=== PATIENT | female | born 1960 | race Caucasian/White ===

== ENCOUNTER 2018-12-13 07:58 | Inpatient (IN) | payer MEDICARE, MEDICAID ==
[~2018-12-13] VITALS: Ht 162.6 cm; Wt 53.5 kg
--- NOTE | 2018-12-13 08:07 | NUR ---
BIB [facility] FOR C/O CP STARTED AT 0300 THIS AM W/ COUGHING AND FEVER. NO HX CARDIAC/PULM ISSUES. 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 USES METH. PT RESTING ON GURNEY. MONITORS APPLIED. WARM BLANKET PROVIDED.
[2018-12-13] MEDS ORDERED: SODIUM CHLORIDE FLUSH 10ML SYR IVF ONE (08:30)
[2018-12-13] MEDS ORDERED: SODIUM CHLORIDE 0.9% 1,000ML IVBOLUS ONE (08:30)
[2018-12-13 08:56] LABS: MEAN CORPUSCULAR HEMOGLOBIN 28.2 pg (27.0-34.8); MEAN CORPUSCULAR HGB CONC 33.3 g/dL (32.4-35.8); MEAN CORPUSCULAR VOLUME 84.8 fL (80-100); MEAN PLATELET VOLUME 7.4 fL (7.4-10.4); PLATELET COUNT 318 x10^3/uL (130-400); RED BLOOD COUNT 4.98 x10^6/uL (3.82-5.3); RED CELL DISTRIBUTION WIDTH 14.6 % (9.6-15.2)
[2018-12-13] MEDS ORDERED: AZITHROMYCIN 500 MG in SODIUM CHLORIDE 0.9% 250 ML IV ONE (09:00)
[2018-12-13] MEDS ORDERED: CEFTRIAXONE PMX 1GM/50ML 50 ML IVPB ONE (09:00)
[2018-12-13 09:01] LABS: ALANINE AMINOTRANSFERASE 33 U/L (12-78); ALBUMIN 3.4 g/dL (3.4-5.0); ANION GAP 6 mmol/L (5-15); CALCIUM 8.5 mg/dL (8.5-10.1); CHLORIDE 106 mmol/L (98-107); CREATININE 0.85 mg/dL (0.55-1.02)
[2018-12-13] MEDS ORDERED: CEFTRIAXONE PMX 1GM/50ML 50 ML ONE (09:01)
[2018-12-13 09:06] LABS: ALKALINE PHOSPHATASE 110 U/L (45-117); BILIRUBIN,TOTAL 0.3 mg/dL (0.2-1.0); TOTAL PROTEIN 7.3 g/dL (6.4-8.2); TROPONIN I < 0.015 ng/mL (0.000-0.045)
--- NOTE | 2018-12-13 09:14 | NUR ---
PT RESTING ON [id number]. NADN. VSS. MEDICATED PER OCT.
[2018-12-13 09:32] LABS: BASOPHILS # (AUTO) 0.08 x10^3/uL (0-0.1); BASOPHILS % (AUTO) 1 % (0-1); EOSINOPHILS # (AUTO) 0.02 x10^3/uL (0-0.4); EOSINOPHILS % (AUTO) 0 % (1-7); LYMPHOCYTES # (AUTO) 1.13 x10^3/uL (1-3.4); LYMPHOCYTES % (AUTO) 7 % (22-44); MD SCAN; MONOCYTES # (AUTO) 0.37 x10^3/uL (0.2-0.8); MONOCYTES % (AUTO) 2 % (2-9); NEUTROPHILS # (AUTO) 14.48 x10^3/uL (1.8-6.8); NEUTROPHILS % (AUTO) 90 % (42-75)
[2018-12-13 09:35] LABS: MICROSCOPIC AUTO
[2018-12-13 09:37] LABS: CULTURE INDICATED? YES
--- NOTE | 2018-12-13 09:43 | NUR ---
PT CHART REVIEWED AND PLACED FOR RECHECK
--- NOTE | 2018-12-13 10:29 | NUR ---
PT SLEEPING ON SHANELLE. NADN. MANRIQUE.
[2018-12-13] MEDS ORDERED: IBUPROFEN 600 MG TABLET ONE (10:35)
[2018-12-13] MEDS ORDERED: IBUPROFEN 600 MG TABLET PO ONE (11:00)
--- NOTE | 2018-12-13 11:14 | NUR ---
PT RESTING ON SHANELLE. VSS. AWARE OF POC FOR ADMIT.
--- NOTE | 2018-12-13 11:57 | NUR ---
PT SLEEPING ON SHANELLE. NADN. MANRIQUE.
--- NOTE | 2018-12-13 12:16 | NUR ---
REPORT GIVEN TO LAURE, MIKE RN. ALL QUESTIONS ANSWERED. AWAITING PT TRANSPORT.
[2018-12-13 12:32] VITALS: BP 112/70
[2018-12-13 15:16] VITALS: BP 112/70
[2018-12-13] MEDS ORDERED: CEFTRIAXONE PMX 1GM/50ML 50 ML IV SCH ×2 (17:30→21:00)
[2018-12-13] MEDS ORDERED: GUAIFENESIN/DM 200-20MG, 10ML UDC PO PRN (17:30)
[2018-12-13] MEDS: NICOTINE 21 MG/24 HR PATCH.TD24 TD SCH (17:30)
[2018-12-13] MEDS ORDERED: ONDANSETRON ODT 4 MG PO PRN (17:30)
[2018-12-13] MEDS ORDERED: ONDANSETRON 2MG/ML, 2ML IVPush PRN (17:30)
[2018-12-13] MEDS ORDERED: hydrALAzine 20 MG/ML, 1ML IVPush PRN (17:30)
[2018-12-13] MEDS ORDERED: POLYETHYLENE GLYCOL 17 GM PACKET PO PRN (17:30)
[2018-12-13] MEDS ORDERED: ZOLPIDEM 5MG TABLET PO PRN (17:30)
[2018-12-13] MEDS ORDERED: AZITHROMYCIN 500 MG in SODIUM CHLORIDE 0.9% 250 ML IV SCH (17:30)
[2018-12-13] MEDS ORDERED: LABETALOL 20 MG/4 ML IVPush PRN (17:30)
[2018-12-13] MEDS ORDERED: LIDODERM 5% PATCH TD PRN (17:30)
[2018-12-13] MEDS ORDERED: GUAIFENESIN/COD200MG-20MG/10ML LIQUID PO PRN (17:30)
[2018-12-13] MEDS: SODIUM CHLORIDE 0.9% 1,000 ML IV SCH (18:26)
[2018-12-13 18:45] VITALS: BP 147/75
[2018-12-13 18:45] LABS: TROPONIN I < 0.015 ng/mL (0.000-0.045)
[2018-12-13] MEDS: FAMOTIDINE 20 MG TABLET PO SCH (20:25)
[2018-12-13] MEDS: ENOXAPARIN 40 MG/0.4 ML SQ SCH (20:25)
[2018-12-14 00:21] LABS: TROPONIN I < 0.015 ng/mL (0.000-0.045)
[2018-12-14 02:40] VITALS: BP 127/72
[2018-12-14] MEDS: SODIUM CHLORIDE 0.9% 1,000 ML IV SCH ×2 (05:23→17:53)
[2018-12-14 05:48] LABS: MEAN CORPUSCULAR HEMOGLOBIN 28.7 pg (27.0-34.8); MEAN CORPUSCULAR HGB CONC 33.6 g/dL (32.4-35.8); MEAN CORPUSCULAR VOLUME 85.6 fL (80-100); MEAN PLATELET VOLUME 7.5 fL (7.4-10.4); PLATELET COUNT 302 x10^3/uL (130-400); RED BLOOD COUNT 4.37 x10^6/uL (3.82-5.3); RED CELL DISTRIBUTION WIDTH 14.5 % (9.6-15.2)
[2018-12-14 05:55] LABS: CHLORIDE 116 mmol/L (98-107)
[2018-12-14 06:13] LABS: ANION GAP 7 mmol/L (5-15); CALCIUM 8.3 mg/dL (8.5-10.1); CHOL/HDL RATIO 2.5; CHOLESTEROL, TOTAL 139 mg/dL (140-239); CREATININE 0.67 mg/dL (0.55-1.02); HDL CHOL % 40 % (28-40); HDL CHOLESTEROL (DIRECT) 56 mg/dL (40-60); LDL CHOLESTEROL,CALCULATED 70 mg/dL (54-169); LDL/HDL RATIO 1.3 (0.5-3.0); TRIGLYCERIDES 64 mg/dL (50-200); VLDL CHOLESTEROL 13 mg/dL (0-25)
[2018-12-14 06:20] LABS: BASOPHILS # (AUTO) 0.05 x10^3/uL (0-0.1); BASOPHILS % (AUTO) 0 % (0-1); EOSINOPHILS # (AUTO) 0.11 x10^3/uL (0-0.4); EOSINOPHILS % (AUTO) 1 % (1-7); LYMPHOCYTES % (AUTO) 16 % (22-44); MD SCAN; MONOCYTES # (AUTO) 1.22 x10^3/uL (0.2-0.8); MONOCYTES % (AUTO) 6 % (2-9); NEUTROPHILS # (AUTO) 15.38 x10^3/uL (1.8-6.8); NEUTROPHILS % (AUTO) 77 % (42-75)
[2018-12-14] MEDS ORDERED: VANCOMYCIN PER PHARMACY MC PRN (07:00)
[2018-12-14 07:30] VITALS: BP 134/78
[2018-12-14] MEDS ORDERED: PHARMACOKINETIC MONITORING MC PRN (07:30)
[2018-12-14] MEDS: PIPERACILLIN/TAZO/PMX 4.5GM 100 ML IV SCH ×3 (07:46→18:41)
[2018-12-14] MEDS: FAMOTIDINE 20 MG TABLET PO SCH ×2 (08:37→23:09)
[2018-12-14] MEDS: VANCOMYCIN PMX 1GM/200ML 200 ML IV SCH ×2 (08:37→20:13)
[2018-12-14] MEDS: GUAIFENESIN 200 MG TABLET PO SCH ×4 (08:37→23:10)
[2018-12-14] MEDS: ACETAMINOPHEN 325 MG TABLET PO PRN (08:42)
[2018-12-14] MEDS: AZITHROMYCIN 500 MG in SODIUM CHLORIDE 0.9% 250 ML IV SCH (11:39)
[2018-12-14 12:27] LABS: RAPID INFLUENZA A Negative (Negative); RAPID INFLUENZA B Negative (Negative)
[2018-12-14 14:45] VITALS: BP 154/90
[2018-12-14] MEDS: NICOTINE 21 MG/24 HR PATCH.TD24 TD SCH (16:26)
[2018-12-14 20:26] VITALS: BP 158/80
[2018-12-14] MEDS: ENOXAPARIN 40 MG/0.4 ML SQ SCH (23:10)
[2018-12-15 00:05] VITALS: BP 144/80
[2018-12-15] MEDS: PIPERACILLIN/TAZO/PMX 4.5GM 100 ML IV SCH ×2 (02:17→09:33)
[2018-12-15] MEDS: SODIUM CHLORIDE 0.9% 1,000 ML IV SCH (05:32)
[2018-12-15 05:50] LABS: BASOPHILS # (AUTO) 0.03 x10^3/uL (0-0.1); BASOPHILS % (AUTO) 0 % (0-1); EOSINOPHILS # (AUTO) 0.24 x10^3/uL (0-0.4); EOSINOPHILS % (AUTO) 2 % (1-7); LYMPHOCYTES # (AUTO) 3.63 x10^3/uL (1-3.4); LYMPHOCYTES % (AUTO) 30 % (22-44); MD NO; MEAN CORPUSCULAR HEMOGLOBIN 28.4 pg (27.0-34.8); MEAN CORPUSCULAR HGB CONC 32.9 g/dL (32.4-35.8); MEAN CORPUSCULAR VOLUME 86.4 fL (80-100); MEAN PLATELET VOLUME 7.5 fL (7.4-10.4); MONOCYTES % (AUTO) 7 % (2-9); NEUTROPHILS # (AUTO) 7.52 x10^3/uL (1.8-6.8); NEUTROPHILS % (AUTO) 62 % (42-75); PLATELET COUNT 324 x10^3/uL (130-400); RED BLOOD COUNT 4.29 x10^6/uL (3.82-5.3); RED CELL DISTRIBUTION WIDTH 14.6 % (9.6-15.2)
[2018-12-15] MEDS: GUAIFENESIN 200 MG TABLET PO SCH ×4 (06:27→20:18)
[2018-12-15 07:15] VITALS: BP 142/79
[2018-12-15] MEDS: VANCOMYCIN PMX 1GM/200ML 200 ML IV SCH ×2 (08:21→20:18)
[2018-12-15] MEDS: AMLODIPINE 5 MG TABLET PO SCH ×2 (08:21→20:18)
[2018-12-15] MEDS: FAMOTIDINE 20 MG TABLET PO SCH ×2 (08:21→20:18)
[2018-12-15] MEDS: AZITHROMYCIN 500 MG in SODIUM CHLORIDE 0.9% 250 ML IV SCH (10:44)
[2018-12-15] MEDS: AMPICILLIN/SULBACTAM 1,500 MG in SODIUM CHLORIDE 0.9% 50 ML IV SCH ×3 (12:11→23:20)
[2018-12-15 14:00] VITALS: BP 131/70
[2018-12-15] MEDS: NICOTINE 21 MG/24 HR PATCH.TD24 TD SCH (17:20)
[2018-12-15 19:06] VITALS: BP 151/81
[2018-12-15] MEDS: ENOXAPARIN 40 MG/0.4 ML SQ SCH (20:20)
[2018-12-16 00:25] VITALS: BP 157/88
[2018-12-16] MEDS: AMPICILLIN/SULBACTAM 1,500 MG in SODIUM CHLORIDE 0.9% 50 ML IV SCH ×4 (05:12→23:09)
[2018-12-16] MEDS: GUAIFENESIN 200 MG TABLET PO SCH ×4 (06:27→21:17)
[2018-12-16 08:30] LABS: BASOPHILS # (AUTO) 0.04 x10^3/uL (0-0.1); BASOPHILS % (AUTO) 0 % (0-1); EOSINOPHILS # (AUTO) 0.25 x10^3/uL (0-0.4); EOSINOPHILS % (AUTO) 2 % (1-7); LYMPHOCYTES # (AUTO) 3.16 x10^3/uL (1-3.4); LYMPHOCYTES % (AUTO) 30 % (22-44); MD NO; MEAN CORPUSCULAR HEMOGLOBIN 28.1 pg (27.0-34.8); MEAN CORPUSCULAR HGB CONC 31.6 g/dL (32.4-35.8); MEAN CORPUSCULAR VOLUME 88.8 fL (80-100); MEAN PLATELET VOLUME 7.6 fL (7.4-10.4); MONOCYTES # (AUTO) 0.68 x10^3/uL (0.2-0.8); MONOCYTES % (AUTO) 7 % (2-9); NEUTROPHILS # (AUTO) 6.39 x10^3/uL (1.8-6.8); NEUTROPHILS % (AUTO) 61 % (42-75); PLATELET COUNT 383 x10^3/uL (130-400); RED BLOOD COUNT 4.84 x10^6/uL (3.82-5.3)
[2018-12-16 08:41] LABS: CHLORIDE 114 mmol/L (98-107)
[2018-12-16 09:07] LABS: ALANINE AMINOTRANSFERASE 33 U/L (12-78); ALBUMIN 2.9 g/dL (3.4-5.0); ALKALINE PHOSPHATASE 101 U/L (45-117); ANION GAP 8 mmol/L (5-15); BILIRUBIN,TOTAL 0.1 mg/dL (0.2-1.0); CREATININE 0.63 mg/dL (0.55-1.02); TOTAL PROTEIN 6.8 g/dL (6.4-8.2)
[2018-12-16 09:47] VITALS: BP 124/74
[2018-12-16] MEDS: AZITHROMYCIN 500 MG in SODIUM CHLORIDE 0.9% 250 ML IV SCH (10:36)
[2018-12-16] MEDS: FAMOTIDINE 20 MG TABLET PO SCH ×2 (10:36→21:17)
[2018-12-16] MEDS: LISINOPRIL 10 MG TABLET PO SCH (10:36)
[2018-12-16] MEDS: AMLODIPINE 5 MG TABLET PO SCH ×2 (10:37→21:17)
[2018-12-16 14:42] VITALS: BP 110/70
[2018-12-16] MEDS: NICOTINE 21 MG/24 HR PATCH.TD24 TD SCH (17:09)
[2018-12-16 20:00] VITALS: BP 122/79
[2018-12-16] MEDS: ENOXAPARIN 40 MG/0.4 ML SQ SCH (21:00)
[2018-12-17 02:58] VITALS: BP 121/81
[2018-12-17] MEDS: GUAIFENESIN 200 MG TABLET PO SCH ×2 (05:20→11:14)
[2018-12-17] MEDS: AMPICILLIN/SULBACTAM 1,500 MG in SODIUM CHLORIDE 0.9% 50 ML IV SCH (05:20)
[2018-12-17] MEDS: ACETAMINOPHEN 325 MG TABLET PO PRN (05:26)
[2018-12-17 07:15] LABS: BASOPHILS # (AUTO) 0.06 x10^3/uL (0-0.1); BASOPHILS % (AUTO) 1 % (0-1); EOSINOPHILS # (AUTO) 0.28 x10^3/uL (0-0.4); EOSINOPHILS % (AUTO) 3 % (1-7); LYMPHOCYTES # (AUTO) 3.89 x10^3/uL (1-3.4); LYMPHOCYTES % (AUTO) 46 % (22-44); MD SCAN; MEAN CORPUSCULAR HEMOGLOBIN 28.5 pg (27.0-34.8); MEAN CORPUSCULAR HGB CONC 33.5 g/dL (32.4-35.8); MEAN CORPUSCULAR VOLUME 85.1 fL (80-100); MONOCYTES # (AUTO) 0.76 x10^3/uL (0.2-0.8); MONOCYTES % (AUTO) 9 % (2-9); NEUTROPHILS # (AUTO) 3.54 x10^3/uL (1.8-6.8); NEUTROPHILS % (AUTO) 42 % (42-75); PLATELET COUNT 383 x10^3/uL (130-400); RED BLOOD COUNT 4.74 x10^6/uL (3.82-5.3); RED CELL DISTRIBUTION WIDTH 14.6 % (9.6-15.2)
[2018-12-17 08:41] VITALS: BP 120/71
[2018-12-17] MEDS ORDERED: CEFDINIR 300 MG CAPSULE PO SCH (09:00)
[2018-12-17] MEDS ORDERED: DOXYCYCLINE 100MG TABLET PO SCH (09:00)
[2018-12-17] MEDS ORDERED: AMOXICILLIN/CLAV 875-125MG TABLET PO SCH (09:00)
[2018-12-17] MEDS: AMLODIPINE 5 MG TABLET PO SCH (09:01)
[2018-12-17] MEDS: LISINOPRIL 10 MG TABLET PO SCH (09:02)
[2018-12-17] MEDS: FAMOTIDINE 20 MG TABLET PO SCH (09:02)
[2018-12-17] MEDS ORDERED: LISI-167 PO (10:40)
[2018-12-17] MEDS ORDERED: CEFD300C37 PO (10:40)
[2018-12-17] MEDS ORDERED: AMLO-150 PO (10:40)
[2018-12-17] MEDS ORDERED: DOXY100T PO (10:40)
[2018-12-17] MEDS ORDERED: GUAI200T3 PO (10:40)
[2018-12-17 12:25] VITALS: BP 141/81
== END 2018-12-17 14:42 | disposition home or self-care (01) | DRG 871 ==
LOC: ED 10:19 → EDIP 11:57 → 3NE 12:05
PROVIDERS: ADMIT Internal Medicine; ATTEND Internal Medicine
DX: A41.9 Sepsis, unspecified organism (principal); J15.9 Unspecified bacterial pneumonia; N39.0 Urinary tract infection, site not specified; B96.20 Unspecified Escherichia coli [E. coli] as the cause of diseases classified elsewhere; F15.90 Other stimulant use, unspecified, uncomplicated; F17.200 Nicotine dependence, unspecified, uncomplicated; Z79.899 Other long term (current) drug therapy; Z71.6 Tobacco abuse counseling; Z83.3 Family history of diabetes mellitus; Z85.038 Personal history of other malignant neoplasm of large intestine; Z90.49 Acquired absence of other specified parts of digestive tract
CPT/HCPCS: 36415; 71045; 80048; 80053; 80061; 80202; 81001; 83605; 84145; 84443; 84484; 85025; 87040; 87070; 87077; 87086; 87186; 87205; 87400; 90656; 93005; 96361; 96365; 96368; G0378; J0456; J0696; J1650; J2543; J3370; J0295; J7030; J7050